=== PATIENT | female | born 1940 | race Two or more races ===

== ENCOUNTER 2020-08-29 08:55 | Outpatient (CLI) | payer OTHER | END 2020-08-29 08:58 | disposition home or self-care (01) | LOC: RAD 08:55 | PROVIDERS: ATTEND Orthopaedic Surgery | DX: S52.531A Colles' fracture of right radius, initial encounter for closed fracture (principal); Z96.652 Presence of left artificial knee joint ==

== ENCOUNTER 2020-09-27 12:17 | Outpatient (CLI) | payer OTHER | END 2020-09-27 12:19 | disposition home or self-care (01) | LOC: NUCLEAR 12:17 | PROVIDERS: ATTEND Orthopaedic Surgery | DX: M81.0 Age-related osteoporosis without current pathological fracture (principal) ==